=== PATIENT | male | born 1960 | race Caucasian/White ===

== ENCOUNTER 2017-11-18 07:18 | Emergency (ER) | payer BC, OTHER ==
[2017-11-18 07:43] VITALS: BP 133/90
--- NOTE | 2017-11-18 07:55 | UC ---
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 Wears dentures x 3 years, states that the fitting is good but he has lost 10 pounds since they were fitted. Pain with swallowing. Sound seems a bit muffled, ear uncomfortable. Temp 99. No meds taken. - History of Current Complaint Chief Complaint: UCEar Stated Complaint: EAR PAIN, SORE THROAT Time Seen by Provider: 11/18/17 07:42 Hx Obtained From: Patient Onset/Duration: Sudden Onset, Lasting Hours Severity: Moderate Pain Intensity: 8 Cough: Nonproductive Associated Signs & Symptoms: Positive: Negative - Epiglottits Risk Factors Epiglottis Risk Factors: Negative - Allergies/Home Medications Allergies/Adverse Reactions: Allergies Allergy/AdvReac Type Severity Reaction Status Date / Time MS Codeine [Codeine] AdvReac Nausea Verified 09/07/13 16:35 Home Medications: Home Medications ALPRAZolam TAB* [Xanax TAB*] 0.25 mg PO BEDTIME PRN 11/18/17 [History Confirmed 11/18/17] PMH/Surg Hx/FS Hx/Imm Hx - Additional Past Medical History Additional PMH: low body weight since bowel resection for diverticulitis. Respiratory History: COPD - Surgical History Surgical History: Yes Surgery Procedure, Year, and Place: Zenker's Divertulum Repair, 2002. Colon Resction, 1993. Appendectomy, 2000. 2 spontaneous pneumothorax.. 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 Is Patient Immunocompromised?: No All Other Systems Reviewed And Are Negative: Yes Physical Exam Triage Information Reviewed: Yes Appearance: Ill-Appearing, Thin Vital Signs: Initial Vital Signs Temp 99.4 F 11/18/17 07:35 Pulse 73 11/18/17 07:35 Resp 20 11/18/17 07:35 BP 133/90 11/18/17 07:35 Pulse Ox 98 11/18/17 07:35 Eye Exam: Normal ENT: Positive: Pharynx normal, TMs normal, Other - Dentures removed. Has small blister in the posterior gum line, no purulent discharge. No masses felt.. Negative: Pharyngeal erythema Dental Exam: Other Neck: Positive: Supple, Nontender, No Lymphadenopathy Respiratory: Positive: Lungs clear, Normal breath sounds Cardiovascular: Positive: RRR, No Murmur Musculoskeletal Exam: Normal Neurological Exam: Normal Psychological Exam: Normal Throat Pain/Nasal Course/Dx - Course Course Of Treatment: naproxen for pain; penicillin for possible infection. - Differential Dx/Diagnosis Provider Diagnoses: oral abscess; TMJ pain possibly secondary to dentures. Discharge - Sign-Out/Discharge Documenting (check all that apply): Discharge/Admit/Transfer - Discharge Plan Condition: Stable Disposition: HOME Prescriptions: Naproxen [Naproxen 500 mg tab] 500 mg PO BID PRN #30 tablet.dr PRN Reason: Pain Penicillin VK 500 MG TAB(NF) [Penicillin VK 500 mg Tab] 500 mg PO QID #28 tab Patient Education Materials: Dental Abscess (ED), Temporomandibular Disorder ( ED) Forms: *Work Release Referrals: John Briscoe MD [Primary Care Provider] - Additional Instructions: I suspect that you have an oral abscess, likely secondary to some wear from your dentures as judged by the blister at the back of your gum line. Use naproxen for pain, penicillin to treat infection. Follow up for assessment if you do not see improvement in 2 days. - Billing Disposition and Condition Condition: STABLE Disposition: Home
[2017-11-18] MEDS ORDERED: Naproxen TAB* 250 MG PO ONE (08:00)
== END 2017-11-18 08:20 | disposition home or self-care (01) ==
LOC: UCCORT 07:18
DX: K04.7 Periapical abscess without sinus (principal); M26.609 Unspecified temporomandibular joint disorder, unspecified side; Z98.818 Other dental procedure status; Z88.5 Allergy status to narcotic agent; F17.210 Nicotine dependence, cigarettes, uncomplicated
CPT/HCPCS: 99212; A9270-GY; G0463

== ENCOUNTER 2018-07-20 08:06 | Emergency (ER) | payer OTHER ==
--- OUTSIDE RECORDS SUMMARY | 2018-07-20 08:14 | XMS REPORT | Continuity of Care Document ---
:1960 External Reference #:[id number] Author Name Nilson Valle N.P. 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 Payers Date Identification Numbers Payment Provider Subscriber Policy Number: [id number] [facility] Abdoulaye Flemingults PayID: [id number] [employer] [address] [address] [place] [address] Effective: 2017 Policy Number: [id number] bib Abdoulaye Rebolledo Jaleel Expires: 2018 Group Number: [id number] [address] [address] PayID: [id number] [place] [address] Advance Directives Description No Information Available Problems Date Description Provider Status Onset: 07/09/2013 Chronic obstructive lung disease Kelly Becerra FNP Active Onset: 07/09/2013 Acquired diverticulum of esophagus Kelly Becerra FNP Active Onset: 07/09/2013 Tobacco user Kelly Becerra FNP Active Onset: 07/09/2013 Family history of ischemic heart Kelly Becerra FNP Active disease Onset: 09/23/2013 Myopia John Briscoe M.D. Active Onset: 09/23/2013 Diverticulitis of colon John Briscoe M.D. Active Family History Date Family Member(s) Observation Comments Father due to at age 65 () Father due to Stroke () Mother healthy Mother 74 Children 1 First Son No Current Problems First Son 26 Siblings 1 First Brother Diverticulitis First Brother 53 Social History Type Date Description Comments Sex Unknown Marital Status Legal Status: ETOH Use Occasionally consumes 3 BEERS A WEEK alcohol Recreational Drug Use Current Drug User SMOKES MARIJUANA 2-3 TIMES PER WEEK Tobacco Use Start: Unknown Patient is a current smoker, smokes every day Smoking Status Reviewed: 05/21/18 Patient is a current smoker, smokes every day Allergies, Adverse Reactions, Alerts Date Description Reaction Status Severity Comments 07/09/2013 Codeine Active pt Is Not Allergic, But Prefers Not To Take It Medications Medication Date Status Form Strength Qnty SIG Indications Ordering Provider Stiolto Active Aerosol 2.5-2.5mcg/ 4gm inhale J44.9 Luis Felipe, Respimat 018 Act two puff Ahmad M., by mouth M.D. once a day Vitamin D Active Tablets 2000Unit 30tabs Take One E55.9 Luis Felipe, 018 Tablet By Ahmad M., Mouth M.D. Every Day Nicoderm CQ Active Patches 21mg/24HR 42unit apply F17.210 Luis Felipe , 018 24HR s patch to Ahmad M., skin in M.D. new area daily after removal of old patch Alprazolam Active Tablets 0.25mg 45tabs 1 by F41.9 Luis Felipe, 017 mouth Ahmad M., three M.D. times a day as needed G47.00 Ventolin 07/09/2013 Active Aerosol 108(90Base) 54units inhale two J44.9 Luis Felipe, HFA mcg/Act puffs by Ahmad mouth every M., M.D. 4 to 6 hours as needed for cough / shortness of breath R06.02 Lexapro 04/14/2016 - Hx Tablets 10mg 90tabs 1/2-1 tab by mouth F33.9 Luis Felipe, Ahmad M., 07/05/2016 every day M.D. F41.9 Lexapro 03/30/2016 - Hx Tablets 10mg 30tabs 1 tab by mouth F33.9 Luis Felipe , Ahmad 04/14/2016 every day M., M.D. F41.9 Spiriva 08/03/2015 - Hx Aerosol 2.5mcg/Act 12units inhale one J44.9 Luis Felipe, Respimat 03/27/2018 puff by mouth Ahmad M., twice a day M.D. Chantix 07/24/2013 - Hx Tablets 1mg 60tabs take 1/2 Tab 305.1 Luis Felipe, 01/19/2014 daily x3 Ahmad M., days, then M.D. 1/2 Tab bid x4 days, then 1 tab po bid Spiriva 07/09/2013 - Hx Capsules 18mcg 90caps inhale one J44.9 Luis Felipe, Handihaler 08/03/2015 capsule via leland Cisnerosalebib [place] everyday Immunizations CPT Code Status Date Vaccine Lot # [id number] Given 03/30/2016 TDaP [id number] Refused 03/27/2018 Flu Vaccine [id number] Refused 08/03/2015 Flu Vaccine Vital Signs Date Vital Result Comment 07/10/2018 8:33am BP Systolic 110 mmHg BP Diastolic 62 mmHg Height 70 inches 5'10" Weight 110.00 lb BMI (Body Mass Index) 15.8 kg/m2 06/24/2018 8:36am BP Systolic 118 mmHg BP Diastolic 78 mmHg Height 70 inches 5'10" Weight 106.00 lb BMI (Body Mass Index) 15.2 kg/m2 Heart Rate 88 /min Respiratory Rate 16 /min 05/22/2018 8:31am BP Systolic 108 mmHg BP Diastolic 68 mmHg Height 70 inches 5'10" Weight 110.00 lb BMI (Body Mass Index) 15.8 kg/m2 Heart Rate 70 /min Respiratory Rate 16 /min 03/27/2018 8:32am BP Systolic 110 mmHg BP Diastolic 62 mmHg Height 70 inches 5'10" Weight 108.00 lb BMI (Body Mass Index) 15.5 kg/m2 Heart Rate 76 /min Respiratory Rate 16 /min 02/20/2018 8:35am BP Systolic 110 mmHg BP Diastolic 70 mmHg Height 70 inches 5'10" Weight 109.00 lb BMI (Body Mass Index) 15.6 kg/m2 Heart Rate 88 /min Respiratory Rate 16 /min 02/06/2018 9:00am BP Systolic 118 mmHg BP Diastolic 70 mmHg Height 70 inches 5'10" Weight 107.00 lb BMI (Body Mass Index) 15.4 kg/m2 Heart Rate 64 /min Respiratory Rate 16 /min 01/23/2018 8:34am BP Systolic 110 mmHg BP Diastolic 72 mmHg Height 70 inches 5'10" Weight 109.00 lb BMI (Body Mass Index) 15.6 kg/m2 Heart Rate 63 /min Respiratory Rate 14 /min 11/26/2017 8:04am BP Systolic 120 mmHg BP Diastolic 62 mmHg Height 70 inches 5'10" Weight 110.00 lb BMI (Body Mass Index) 15.8 kg/m2 Heart Rate 92 /min Respiratory Rate 16 /min 09/26/2017 8:07am BP Systolic 110 mmHg BP Diastolic 70 mmHg Height 70 inches 5'10" Weight 111.00 lb BMI (Body Mass Index) 15.9 kg/m2 Heart Rate 63 /min Respiratory Rate 18 /min 08/01/2017 8:40am BP Systolic 118 mmHg BP Diastolic 70 mmHg Height 70 inches 5'10" Weight 110.00 lb BMI (Body Mass Index) 15.8 kg/m2 Heart Rate 68 /min Respiratory Rate 20 /min 05/29/2017 8:32am BP Systolic 110 mmHg BP Diastolic 72 mmHg Height 70 inches 5'10" Weight 110.00 lb BMI (Body Mass Index) 15.8 kg/m2 Heart Rate 73 /min Respiratory Rate 18 /min 04/02/2017 9:39am BP Systolic 120 mmHg BP Diastolic 70 mmHg Weight 112.00 lb Heart Rate 78 /min Respiratory Rate 16 /min 01/31/2017 9:46am BP Systolic 100 mmHg BP Diastolic 70 mmHg Height 70 inches 5'10" Weight 113.00 lb BMI (Body Mass Index) 16.2 kg/m2 Heart Rate 80 /min Respiratory Rate 16 /min 12/13/2016 8:31am BP Systolic 110 mmHg BP Diastolic 60 mmHg Height 70 inches 5'10" Weight 113.00 lb BMI (Body Mass Index) 16.2 kg/m2 Heart Rate 75 /min Respiratory Rate 16 /min 11/29/2016 10:32am BP Systolic 108 mmHg BP Diastolic 64 mmHg Height 70 inches 5'10" Weight 114.00 lb BMI (Body Mass Index) 16.4 kg/m2 Heart Rate 58 /min Respiratory Rate 16 /min 10/02/2016 8:36am BP Systolic 110 mmHg BP Diastolic 58 mmHg Height 70 inches 5'10" Weight 111.00 lb BMI (Body Mass Index) 15.9 kg/m2 Heart Rate 89 /min Respiratory Rate 16 /min 07/25/2016 2:06pm BP Systolic 110 mmHg BP Diastolic 72 mmHg Height 70 inches 5'10" Weight 113.00 lb BMI (Body Mass Index) 16.2 kg/m2 Heart Rate 82 /min Respiratory Rate 16 /min 04/14/2016 8:45am BP Systolic 112 mmHg BP Diastolic 72 mmHg Weight 118.00 lb Heart Rate 72 /min Respiratory Rate 20 /min 03/30/2016 9:24am BP Systolic 126 mmHg BP Diastolic 64 mmHg Height 71 inches 5'11" Weight 117.00 lb BMI (Body Mass Index) 16.3 kg/m2 Heart Rate 82 /min Respiratory Rate 20 /min 03/15/2016 8:27am BP Systolic 132 mmHg BP Diastolic 78 mmHg Height 71 inches 5'11" Weight 120.00 lb BMI (Body Mass Index) 16.7 kg/m2 Heart Rate 57 /min Respiratory Rate 20 /min 08/10/2015 10:42am BP Systolic 105 mmHg BP Diastolic 76 mmHg Height 71 inches 5'11" Weight 117.00 lb BMI (Body Mass Index) 16.3 kg/m2 Heart Rate 81 /min Respiratory Rate 18 /min 08/03/2015 10:11am BP Systolic 130 mmHg BP Diastolic 84 mmHg Height 71 inches 5'11" Weight 118.00 lb BMI (Body Mass Index) 16.5 kg/m2 Heart Rate 84 /min Respiratory Rate 18 /min 02/02/2015 9:42am BP Systolic 116 mmHg BP Diastolic 77 mmHg Height 71 inches 5'11" Weight 120.00 lb BMI (Body Mass Index) 16.7 kg/m2 Heart Rate 66 /min Respiratory Rate 16 /min 07/23/2014 2:49pm BP Systolic 116 mmHg BP Diastolic 78 mmHg Height 71 inches 5'11" Weight 119.00 lb BMI (Body Mass Index) 16.6 kg/m2 Heart Rate 74 /min Respiratory Rate 15 /min 06/11/2014 10:22am BP Systolic 125 mmHg BP Diastolic 70 mmHg Height 71 inches 5'11" Weight 120.00 lb BMI (Body Mass Index) 16.7 kg/m2 Heart Rate 85 /min Respiratory Rate 14 /min 01/26/2014 11:46am BP Systolic 124 mmHg BP Diastolic 85 mmHg Height 71 inches 5'11" Weight 116.00 lb BMI (Body Mass Index) 16.2 kg/m2 Heart Rate 50 /min Respiratory Rate 18 /min 09/23/2013 9:29am BP Systolic 118 mmHg BP Diastolic 84 mmHg Height 71 inches 5'11" Weight 127.00 lb BMI (Body Mass Index) 17.7 kg/m2 Heart Rate 57 /min Respiratory Rate 18 /min 07/24/2013 9:22am BP Systolic 102 mmHg BP Diastolic 73 mmHg Height 71 inches 5'11" Weight 119.00 lb BMI (Body Mass Index) 16.6 kg/m2 Heart Rate 92 /min Respiratory Rate 18 /min 07/16/2013 9:51am BP Systolic 130 mmHg BP Diastolic 87 mmHg Height 71 inches 5'11" Weight 119.00 lb BMI (Body Mass Index) 16.6 kg/m2 Heart Rate 74 /min Respiratory Rate 18 /min 07/09/2013 9:42am BP Systolic 136 mmHg BP Diastolic 90 mmHg Height 71 inches 5'11" Weight 118.00 lb BMI (Body Mass Index) 16.5 kg/m2 Heart Rate 84 /min Body Temperature 97.0 F Respiratory Rate 22 /min Results Test Date Facility Test Result H/L Range Note Laboratory test 06/24/2018 [facility] Free Thyroxine 1.16 ng/dL (0.76- 1.46 finding [facility] @ ) (607)- - Ferritin @ 134 ng/mL (26-388) Hemoglobin A1c 06/24/2018 [facility] Hemoglobin A1c @ 5.7 % (4.0-6.0) 1 [address] [facility] (607)- - Est Average Glucose 117 mg/dL Laboratory 06/24/2018 [facility] TSH,Ultrasensitive @ 0.647 (0.360- 4.170) test finding [address] [facility] mIU/L (607)- - Lipid Extended 06/24/2018 [facility] Appearance CLEAR (Clear) Panel [address] [facility] (608)- - Cholesterol @ 235 mg/dL High (0-200) Triglyceride @ 56 mg/dL (30-200) HDL Cholesterol @ 90 mg/dL (>40) 2 Chol/HDL Ratio 2.6 RATIO 3 Direct LDL @ 107 mg/dL (<130) 4 VLDL (Calc) 38 mg/dL High (0-30) Laboratory test 06/24/2018 [facility] 25 Hydroxy Vit 50 ng/mL (31-100 ) 5 finding [address] [facility] [address] @ (607)- - Vitamin B12 @ 856 pg/mL (193-986) Folate @ >20.0 ng/mL High (3.1-17.5) Iron Panel 06/24/2018 [facility] Iron,Total @ 39 g/dL (35-150) [address] [facility] (607)- - Uibc @ 193 g/dL (130-375) Tibc @ 232 g/dL Low (250-450) % Saturation 17 % (12-50) Laboratory test 06/24/2018 [facility] Rheumatoid Factor <15 IU/mL (0- 15) finding [address] [facility] @ (607)- - C Reactive Protein @ <0.3 mg/dL (0.0-0.5) Esr 8 mm/h (0-20) CBC With Diff 06/24/2018 [facility] WBC 6.9 10*3/uL (4.1-11.0) [address] [facility] (607)- - RBC 4.36 10*6/uL Low (4.60-6.10) HGB 14.6 g/dL (13.5-18.0) HCT 43.2 % (41.0-53.0) MCV 99.1 fL High (80.0-95.0) MCH 33.4 pg High (27.0-32.0) MCHC 33.8 g/dL (32.0-36.0) RDW 13.9 % (10.5-14.5) PLT 279 10*3/uL (150-450) MPV 8.3 fL (7.1-10.7) Neut % 70.0 % (35.0-75.0) Lymph % 21.9 % (16.0-52.0) Lajas % 6.5 % (0.0-8.0) Eos % 0.6 % (0.0-5.0) Baso % 1.0 % (0.0-4.0) Neut # 4.8 10*3/uL (1.8-7.7) Lymph # 1.5 10*3/uL (1.2-4.8) Lajas # 0.5 10*3/uL (0.0-0.8) Eos # 0.0 10*3/uL (0.0-0.5) Baso # 0.1 10*3/uL (0.0-0.2) CMP 06/24/2018 [facility] Sodium 138 mmol/L (136-145) [address] [facility] [facility] (607)- - Potassium 4.6 mmol/L (3.6-5.2) Chloride 101 mmol/L (100-108) Co2 30 mmol/L (22-31) Anion Gap 7 mmol/L (7-16) Urea Nitrogen 20 mg/dL (7-24) Creatinine 1.07 mg/dL (0.80-1.30) BUN/Creat Ratio 18.7 RATIO (10.0-20.0) Glucose 89 mg/dL (70-99) Calcium 9.4 mg/dL (8.4-10.2) Total Protein 7.1 g/dL (6.4-8.2) Albumin 4.2 g/dL (3.5-4.6) Globulin 2.9 g/dL (2.7-4.3) Alb/Glob Ratio 1.4 RATIO Alkaline Phosphatase 68 U/L (45-117) Bilirubin,Total 0.5 mg/dL (0.0-1.0) Ast (Sgot) 23 U/L (11-39) Alt (SGPT) 28 U/L (12-78) GFR >60 ml/min/1.73m2 (>59) GFR ( Amer) >60 ml/min/1.73m2 (>59) GFR Interpretation <SEE NOTE> 6 CBS W/Automated Diff 03/26/2018 [facility] White Blood Count 7.2 K/uL N 3.4 -10.5 7 Red Blood Count 4.42 M/uL N 4.20-5.80 Hemoglobin 14.7 gm/dL N 12.8-17.0 Hematocrit 44.3 % N 38.0-48.0 Mean Cell Volume 100.2 fl High 80.0-96.0 Mean Corpuscular HGB 33.3 pg High 27.0-33.0 Mean Corpuscular HGB Conc 33.2 g/dL N 31.7-36.0 Platelet Count 258 K/uL N 155-360 Red Cell Distri Width SD 51.3 fl High 36-51 Red Cell Distri Width %CV 14.2 % N 11.6-15.8 Mean Platelet Volume 9.9 fL N 6.6-10.6 Neut% 68.4 % N 33.0-73.0 Lymph % 23.2 % N 20.0-42.0 Lajas % 6.5 % N 0.0-10.0 Eo% 1.8 % N 0.0-6.6 Bas% 0.1 % N 0.0-1.1 Neut# 4.91 K/uL N 1.8-7.0 Lymph # 1.67 K/uL N 1.0-4.0 Lajas # 0.47 K/uL N 0.0-0.8 Eos # 0.13 K/uL N 0.0-0.5 Baso # 0.01 K/uL N 0.0-0.1 Iron-Tibc-%Sat 03/26/2018 [facility] Serum Iron 56 g/dL Low 65-175 Total Iron Binding Capacity 238 g/dL Low 250-450 Transferrin %Saturation 24 % N 12-57 Urine DRG SCR 02/07/2018 [facility] Amphetamine NEGATIVE N 1000 8 (12PNL-PM) Barbiturate NEGATIVE N 200 Benzodiazepine POSITIVE Abnormal 200 Buprenorphine NEGATIVE N 15 Cannabinoid POSITIVE Abnormal 50 Cocaine NEGATIVE N 300 Methadone NEGATIVE N 300 Opiate NEGATIVE N 300 Oxycodone NEGATIVE N 300 Phencyclidine NEGATIVE N 25 9 Antidepressants Panel 02/07/2018 [facility] Amitriptyline Negative ng/mL N 20 By LC/MS/MS Clomipramine Negative ng/mL N 20 Desipramine Negative ng/mL N 20 Doxepin Negative ng/mL N 20 Fluoxetine Negative ng/mL N 20 Imipramine Negative ng/mL N 20 Norclomipramine Negative ng/mL N 20 Nordoxepin Negative ng/mL N 20 Nortriptyline Negative ng/mL N 20 Sertraline Negative ng/mL N 20 Trimipramine Negative ng/mL N 20 10 Barbiturates Panel By 02/07/2018 [facility] Butalbital Negative ng/mL N 100 LC/MS/MS Pentobarbital Negative ng/mL N 100 Phenobarbital Negative ng/mL N 100 Secobarbital Negative ng/mL N 100 11 Benzodiazepines 02/07/2018 [facility] 2-Hydroxyethylflurazepam Negative N 10 Panel By LC/MS/MS ng/mL 7-Aminoclonazepam Negative ng/mL N 10 Alprazolam 27 Positive Cons <SEE NOTE> ng/mL N 10 12 Chlordiazepoxide Negative ng/mL N 10 Clonazepam Negative ng/mL N 10 Desalkylflurazepam Negative ng/mL N 10 Diazepam Negative ng/mL N 10 Lorazepam Negative ng/mL N 10 Midazolam Negative ng/ml N 10 Nordiazepam Negative ng/mL N 10 Alpha-hydroxyalprazolam 187 Positive Con <SEE NOTE> ng/mL N 10 13 Alpha-Hydroxymidazolam Negative ng/mL N 10 Alpha-Hydroxytriazolam Negative ng/mL N 10 Oxazepam Negative ng/mL N 10 Prazepam Negative ng/mL N 10 Temazepam Negative ng/mL N 10 14 Buprenorphine Panel By 02/07/2018 [facility] Buprenorphine Negative ng/mL N 5 LC/MS/MS Naloxone Negative ng/mL N 10 Norbuprenorphine Negative ng/mL N 5 15 Methadone Panel By 02/07/2018 [facility] Eddp Negative ng/mL N 10 LC/MS/MS Methadone Negative ng/mL N 10 16 Urine Drug [facility] 02/07/2018 [facility] [id number]-Cooh < pending> Ethyl Glucuronide <pending> Ethyl Glucuronide 02/07/2018 [facility] Ethyl Glucuronide Negative ng/mL N 500 PDF SEE IMAGE Laboratory test 02/07/2018 [facility] Cocaine Panel By Negative ng/mL N 50 17 finding LC/MS/MS Tramadol Negative ng/mL N 5 18 PTO-Euctd-0-Cooh Positive >500 In <SEE NOTE> ng/mL Abnormal 5 19 Gabapentin Negative ng/mL N 100 20 Cotinine Positive Consist <SEE NOTE> ng/mL N 500 21 Opiates Panel By 02/07/2018 [facility] 6-Deepthi (Heroin Negative ng/ mL N 5 LC/MS/MS Metabolite) Codeine Negative ng/mL N 50 Hydrocodone Negative ng/mL N 50 Hydromorphone Negative ng/mL N 50 Morphine Negative ng/mL N 50 Norhydrocodone Negative ng/mL N 50 Noroxycodone Negative ng/mL N 50 Noroxymorphone Negative ng/mL N 50 Oxycodone Negative ng/mL N 50 Oxymorphone Negative ng/mL N 50 22 Amphetamine Panel By 02/07/2018 [facility] Amphetamine Negative ng/mL N 50 LC/MS/MS Methamphetamine Negative ng/mL N 50 Mdma (Ecstasy) Negative ng/mL N 50 Mda Negative ng/ml N 50 Mdea Negative ng/mL N 50 23 Specimen Validity 02/07/2018 [facility] Creatinine, Urine 162 mg/ dL N >20 Panel Color YELLOW N Yellow pH 5.2 N 5.0-8.0 Specific [place] 1.026 N 1.001-1.035 24 CMP 02/06/2018 [facility] Sodium 139 mmol/L (136-145) [address] [facility] [facility] (607)- - Potassium 4.6 mmol/L (3.6-5.2) Chloride 102 mmol/L (100-108) Co2 29 mmol/L (22-31) Anion Gap 8 mmol/L (7-16) Urea Nitrogen 15 mg/dL (7-24) Creatinine 0.91 mg/dL (0.80-1.30) BUN/Creat Ratio 16.5 RATIO (10.0-20.0) Glucose 75 mg/dL (70-99) Calcium 9.3 mg/dL (8.4-10.2) Total Protein 7.3 g/dL (6.4-8.2) Albumin 4.0 g/dL (3.5-4.6) Globulin 3.3 g/dL (2.7-4.3) Alb/Glob Ratio 1.2 RATIO Alkaline Phosphatase 59 U/L (45-117) Bilirubin,Total 0.5 mg/dL (0.0-1.0) Ast (Sgot) 16 U/L (11-39) Alt (SGPT) 25 U/L (12-78) GFR >60 ml/min/1.73m2 (>59) GFR ( Amer) >60 ml/min/1.73m2 (>59) GFR Interpretation <SEE NOTE> 25 Laboratory test finding 02/06/2018 [facility] Amylase 72 U/L (25-115) [address] [facility] (607)- - Lipase 141 U/L (65-230) Vitamin B12 @ 968 pg/mL (193-986) Folate @ 19.7 ng/mL High (3.1-17.5) TSH,Ultrasensitive @ 0.911 mIU/L (0.360-4.170) 25 Hydroxy Vit D @ 18 ng/mL Low (31-100) 26 Lipid 02/06/2018 [facility] Cholesterol @ 222 mg/dL High (0-200) [address] [facility] (607)- - Triglyceride @ 59 mg/dL (30-200) HDL Cholesterol @ 94 mg/dL (>40) 27 Chol/HDL Ratio 2.4 RATIO 28 LDL Chol (Calc) 116 mg/dL (<130) 29 CBC With Diff 02/06/2018 [facility] WBC 9.4 10*3/uL (4.1-11.0) [address] [facility] (607)- - RBC 4.84 10*6/uL (4.60-6.10) HGB 15.9 g/dL (13.5-18.0) HCT 49.7 % (41.0-53.0) MCV 102.7 fL High (80.0-95.0) MCH 32.8 pg High (27.0-32.0) MCHC 31.9 g/dL Low (32.0-36.0) RDW 15.4 % High (10.5-14.5) PLT COUNT NOT AVAILA <SEE NOTE> 10*3/uL (150-450) 30 MPV PENDING fL (7.1-10.7) Neut % 77.8 % High (35.0-75.0) Lymph % 12.8 % Low (16.0-52.0) Lajas % 6.9 % (0.0-8.0) Eos % 1.1 % (0.0-5.0) Baso % 1.4 % (0.0-4.0) Neut # 7.3 10*3/uL (1.8-7.7) Lymph # 1.2 10*3/uL (1.2-4.8) Lajas # 0.6 10*3/uL (0.0-0.8) Eos # 0.1 10*3/uL (0.0-0.5) Baso # 0.1 10*3/uL (0.0-0.2) Buprenorphine Panel By 01/23/2018 [facility] Buprenorphine Negative ng/mL N 5 31 LC/MS/MS Naloxone Negative ng/mL N 10 Norbuprenorphine Negative ng/mL N 5 32 Urine DRG SCR 01/23/2018 [facility] Amphetamine NEGATIVE N 1000 (12PNL-PM) Barbiturate NEGATIVE N 200 Benzodiazepine NEGATIVE N 200 Buprenorphine NEGATIVE N 15 Cannabinoid POSITIVE Abnormal 50 Cocaine NEGATIVE N 300 Methadone NEGATIVE N 300 Opiate NEGATIVE N 300 Oxycodone NEGATIVE N 300 Phencyclidine NEGATIVE N 25 33 Opiates Panel By 01/23/2018 [facility] 6-Deepthi (Heroin Negative ng/ mL N 5 LC/MS/MS Metabolite) Codeine Negative ng/mL N 50 Hydrocodone Negative ng/mL N 50 Hydromorphone Negative ng/mL N 50 Morphine Negative ng/mL N 50 Norhydrocodone Negative ng/mL N 50 Noroxycodone Negative ng/mL N 50 Noroxymorphone Negative ng/mL N 50 Oxycodone Negative ng/mL N 50 Oxymorphone Negative ng/mL N 50 34 Urine Drug [facility] 01/23/2018 [facility] [id number]-Sxpsd-0-Cooh < pending> Ethyl Glucuronide <pending> Benzodiazepines 01/23/2018 [facility] 2-Hydroxyethylflurazepam Negative N 10 Panel By LC/MS/MS ng/mL 7-Aminoclonazepam Negative ng/mL N 10 Alprazolam Negative In[facility] <SEE NOTE> ng/mL Abnormal 10 35 Chlordiazepoxide Negative ng/mL N 10 Clonazepam Negative ng/mL N 10 Desalkylflurazepam Negative ng/mL N 10 Diazepam Negative ng/mL N 10 Lorazepam Negative ng/mL N 10 Midazolam Negative ng/ml N 10 Nordiazepam Negative ng/mL N 10 Alpha-hydroxyalprazolam Negative [facility] <SEE NOTE> ng/mL Abnormal 10 36 Alpha-Hydroxymidazolam Negative ng/mL N 10 Alpha-Hydroxytriazolam Negative ng/mL N 10 Oxazepam Negative ng/mL N 10 Prazepam Negative ng/mL N 10 Temazepam Negative ng/mL N 10 37 Methadone Panel By 01/23/2018 [facility] Eddp Negative ng/mL N 10 LC/MS/MS Methadone Negative ng/mL N 10 38 Specimen Validity 01/23/2018 [facility] Creatinine, Urine 145 mg/ dL N >20 Panel Color YELLOW N Yellow pH 5.4 N 5.0-8.0 Specific [place] 1.025 N 1.001-1.035 39 Antidepressants Panel 01/23/2018 [facility] Amitriptyline Negative ng/mL N 20 By LC/MS/MS Clomipramine Negative ng/mL N 20 Desipramine Negative ng/mL N 20 Doxepin Negative ng/mL N 20 Fluoxetine Negative ng/mL N 20 Imipramine Negative ng/mL N 20 Norclomipramine Negative ng/mL N 20 Nordoxepin Negative ng/mL N 20 Nortriptyline Negative ng/mL N 20 Sertraline Negative ng/mL N 20 Trimipramine Negative ng/mL N 20 40 Amphetamine Panel By 01/23/2018 [facility] Amphetamine Negative ng/mL N 50 LC/MS/MS Methamphetamine Negative ng/mL N 50 Mdma (Ecstasy) Negative ng/mL N 50 Mda Negative ng/ml N 50 Mdea Negative ng/mL N 50 41 Laboratory test 01/23/2018 [facility] Cocaine Panel By Negative ng/mL N 50 42 finding LC/MS/MS Tramadol Negative ng/mL N 5 43 CDA-Xvbml-0-Cooh Positive >500 In <SEE NOTE> ng/mL Abnormal 5 44 Gabapentin Negative ng/mL N 100 45 Barbiturates Panel By 01/23/2018 [facility] Butalbital Negative ng/mL N 100 LC/MS/MS Pentobarbital Negative ng/mL N 100 Phenobarbital Negative ng/mL N 100 Secobarbital Negative ng/mL N 100 46 Ethyl Glucuronide 01/23/2018 [facility] Ethyl Glucuronide Negative ng/mL N 500 PDF SEE IMAGE Lipid Profile (Trig/Chol/HDL) 11/29/2016 [facility] Triglycerides 69 mg /dL N 47 Cholesterol 248 mg/dL N 48 HDL Cholesterol 86.2 mg/dL N 49 LDL Cholesterol 148 mg/dL N 50 Laboratory test 11/29/2016 [facility] Hemoglobin A1c 5.8 % N Less than 51 finding (Glyco HGB) 6.0 Comp Metabolic 11/29/2016 [facility] Sodium 135 mmol/L N 133-145 Panel Potassium 4.6 mmol/L N 3.5-5.0 Chloride 101 mmol/L N 101-111 Co2 Carbon Dioxide 30 mmol/L N 22-32 Anion Gap 4 mmol/L N 2-11 Glucose 85 mg/dL N 70-100 Blood Urea Nitrogen 14 mg/dL N 6-24 Creatinine 0.91 mg/dL N 0.67-1.17 BUN/Creatinine Ratio 15.4 N 8-20 Calcium 9.5 mg/dL N 8.6-10.3 Total Protein 6.7 g/dL N 6.4-8.9 Albumin 4.0 g/dL N 3.2-5.2 Globulin 2.7 g/dL N 2-4 Albumin/Globulin Ratio 1.5 N 1-3 Total Bilirubin 0.50 mg/dL N 0.2-1.0 Alkaline Phosphatase 47 U/L N 34-104 Alt 16 U/L N 7-52 Ast 15 U/L N 13-39 Egfr Non- 86.5 N >60 Egfr 111.2 N >60 52 CBC Auto Diff 11/29/2016 [facility] White Blood Count 6.0 10^3/uL N 3.5-10.8 Red Blood Count 4.56 10^6/uL N 4.0-5.4 Hemoglobin 15.2 g/dL N 14.0-18.0 Hematocrit 46 % N 42-52 Mean Corpuscular Volume 101 fL High 80-94 Mean Corpuscular Hemoglobin 33 pg High 27-31 Mean Corpuscular HGB Conc 33 g/dL N 31-36 Red Cell Distribution Width 15 % N 10.5-15 Platelet Count 273 10^3/uL N 150-450 Mean Platelet Volume 9 um3 N 7.4-10.4 Abs Neutrophils 3.2 10^3/uL N 1.5-7.7 Abs Lymphocytes 1.9 10^3/uL N 1.0-4.8 Abs Monocytes 0.6 10^3/uL N 0-0.8 Abs Eosinophils 0.1 10^3/uL N 0-0.6 Abs Basophils 0.1 10^3/uL N 0-0.2 Abs Nucleated RBC 0.02 10^3/uL N Granulocyte % 53.9 % N 38-83 Lymphocyte % 32.3 % N 25-47 Monocyte % 10.0 % High 1-9 Eosinophil % 1.9 % N 0-6 Basophil % 1.9 % N 0-2 Nucleated Red Blood Cells % 0.3 N Laboratory test 11/29/2016 [facility] TSH (Thyroid 0.93 mcIU/mL N 0.34-5.60 53 finding Stim Horm) CBC Auto Diff 03/30/2016 [facility] White Blood 6.4 10^3/uL N 3.5- 10.8 Count Red Blood Count 4.79 10^6/uL N 4.0-5.4 Hemoglobin 15.6 g/dL N 14.0-18.0 Hematocrit 47 % N 42-52 Mean Corpuscular Volume 98 fL High 80-94 Mean Corpuscular Hemoglobin 33 pg High 27-31 Mean Corpuscular HGB Conc 33 g/dL N 31-36 Red Cell Distribution Width 14 % N 10.5-15 Platelet Count 274 10^3/uL N 150-450 Mean Platelet Volume 8 um3 N 7.4-10.4 Abs Neutrophils 4.3 10^3/uL N 1.5-7.7 Abs Lymphocytes 1.5 10^3/uL N 1.0-4.8 Abs Monocytes 0.5 10^3/uL N 0-0.8 Abs Eosinophils 0.1 10^3/uL N 0-0.6 Abs Basophils 0.1 10^3/uL N 0-0.2 Abs Nucleated RBC 0 10^3/uL N Granulocyte % 66.8 % N 38-83 Lymphocyte % 23.6 % Low 25-47 Monocyte % 7.2 % N 1-9 Eosinophil % 1.2 % N 0-6 Basophil % 1.2 % N 0-2 Nucleated Red Blood Cells % 0.1 N Comp Metabolic Panel 03/30/2016 [facility] Sodium 136 mmol/L N 133- 145 Potassium 4.4 mmol/L N 3.5-5.0 Chloride 103 mmol/L N 101-111 Co2 Carbon Dioxide 28 mmol/L N 22-32 Anion Gap 5 mmol/L N 2-11 Glucose 93 mg/dL N 70-100 Blood Urea Nitrogen 17 mg/dL N 6-24 Creatinine 0.98 mg/dL N 0.67-1.17 BUN/Creatinine Ratio 17.3 N 8-20 Calcium 9.6 mg/dL N 8.6-10.3 Total Protein 6.8 g/dL N 6.4-8.9 Albumin 4.1 g/dL N 3.2-5.2 Globulin 2.7 g/dL N 2-4 Albumin/Globulin Ratio 1.5 N 1-3 Total Bilirubin 0.50 mg/dL N 0.2-1.0 Alkaline Phosphatase 52 U/L N 34-104 Alt 15 U/L N 7-52 Ast 14 U/L N 13-39 Egfr Non- 79.7 N >60 Egfr 102.5 N >60 54 Lipid Profile (Trig/Chol/HDL) 03/30/2016 [facility] Triglycerides 72 mg /dL N 55 Cholesterol 218 mg/dL N 56 HDL Cholesterol 74.7 mg/dL N 57 LDL Cholesterol 129 mg/dL N 58 Laboratory test 03/30/2016 [facility] TSH (Thyroid 0.67 mcIU/mL N 0.34-5.60 59 finding Stim Horm) Laboratory test 08/03/2015 [facility] TSH (Thyroid 0.76 ?IU/mL N 0.34 -5.60 finding Stim Horm) Free T4 (Free Thyroxine) 0.99 ng/dL N 0.61-1.12 Laboratory test 08/03/2015 [facility] Thyroid Peroxidase 0.79 IU/mL N <9 finding Antibodies Lipid Profile 08/03/2015 [facility] Triglycerides 101 mg/dL N 60 (Trig/Chol/HDL) Cholesterol 201 mg/dL N 61 HDL Cholesterol 68.5 mg/dL N 62 LDL Cholesterol 112 mg/dL N 63 Laboratory test 08/03/2015 [facility] Erythrocyte Sed 22 mm/Hr High 0 -20 finding Rate Lipase 28 U/L N 11.0-82.0 Amylase 56 U/L N 29-103 Comp Metabolic Panel 08/03/2015 [facility] Sodium 139 mmol/L N 133- 145 Potassium 4.2 mmol/L N 3.5-5.0 Chloride 104 mmol/L N 101-111 Co2 Carbon Dioxide 30 mmol/L N 22-32 Anion Gap 5 mmol/L N 2-11 Glucose 95 mg/dL N 70-100 Blood Urea Nitrogen 19 mg/dL N 6-24 Creatinine 0.95 mg/dL N 0.67-1.17 BUN/Creatinine Ratio 20.0 N 8-20 Calcium 9.6 mg/dL N 8.6-10.3 Total Protein 7.1 g/dL N 6.4-8.9 Albumin 4.3 g/dL N 3.2-5.2 Globulin 2.8 g/dL N 2-4 Albumin/Globulin Ratio 1.5 N 1-3 Total Bilirubin 0.50 mg/dL N 0.2-1.0 Alkaline Phosphatase 60 U/L N 34-104 Alt 16 U/L N 7-52 Ast 15 U/L N 13-39 Egfr Non- 82.6 N >60 Egfr 106.2 N >60 64 CBC Auto Diff 08/03/2015 [facility] White Blood Count 6.2 10^3/uL N 3.5-10.8 Red Blood Count 4.84 10^6/uL N 4.0-5.4 Hemoglobin 15.7 g/dL N 14.0-18.0 Hematocrit 48 % N 42-52 Mean Corpuscular Volume 99 fL High 80-94 Mean Corpuscular Hemoglobin 32 pg High 27-31 Mean Corpuscular HGB Conc 33 g/dL N 31-36 Red Cell Distribution Width 14 % N 10.5-15 Platelet Count 285 10^3/uL N 150-450 Mean Platelet Volume 9 um3 N 7.4-10.4 Abs Neutrophils 4.4 10^3/uL N 1.5-7.7 Abs Lymphocytes 1.3 10^3/uL N 1.0-4.8 Abs Monocytes 0.4 10^3/uL N 0-0.8 Abs Eosinophils 0 10^3/uL N 0-0.6 Abs Basophils 0.1 10^3/uL N 0-0.2 Abs Nucleated RBC 0 10^3/uL N Granulocyte % 70.4 % N 38-83 Lymphocyte % 20.9 % Low 25-47 Monocyte % 7.1 % N 1-9 Eosinophil % 0.5 % N 0-6 Basophil % 1.1 % N 0-2 Nucleated Red Blood Cells % 0 N CBC W/Automated Diff 07/23/2014 [facility] White Blood Count 7.1 K/uL 3.4- 10.5 Red Blood Count 4.40 M/uL 4.20-5.80 Hemoglobin 14.7 gm/dL 12.8-17.0 Hematocrit 43.3 % 38.0-48.0 Mean Cell Volume 98.4 fl High 80.0-96.0 Mean Corpuscular HGB 33.4 pg High 27.0-33.0 Mean Corpuscular HGB Conc 33.9 g/dL 31.7-36.0 Platelet Count 284 K/uL 150-400 Red Cell Distri Width SD 49.3 fl 36-51 Red Cell Distri Width %CV 13.9 % 11.6-15.8 Mean Platelet Volume 10.9 fL High 6.6-10.6 Neut% 59.6 % 33.0-73.0 Lymph % 29.5 % 17.0-56.0 [place] % 9.3 % 0.0-10.0 Eo% 1.3 % 0.0-5.0 Bas% 0.3 % 0.1-1.0 Neut# 4.24 K/uL 1.8-7.0 Lymph # 2.10 K/uL 1.2-4.0 [place] # 0.66 K/uL 0.0-0.8 Eos # 0.09 K/uL 0.0-0.5 Baso # 0.02 K/uL Low 0.1-0.2 Comprehensive Metabolic Panel 07/23/2014 [facility] Glucose 84 mg/dL 74- 106 BUN 19 mg/dL High 7-18 Creatinine 1.0 mg/dL 0.6-1.3 Glom Filtration Rate, Estimate >60 mL/min >60 If >60 mL/min >60 65 BUN/Creat 19.0 ratio Sodium 139 mmol/L 136-145 Potassium 4.2 mmol/L 3.5-5.1 Chloride 106 mmol/L 98-107 Carbon Dioxide 24 mmol/L 21-32 Anion Gap 9 mEq/L 8-16 Calcium 8.6 mg/dL 8.5-10.1 Total Protein 6.6 g/dL 6.4-8.2 Albumin 3.8 g/dL 3.4-5.0 Globulin 2.8 g/dL 1.9-4.3 Alb/Glob 1.4 ratio Bilirubin,Total 0.2 mg/dL 0.2-1.0 Sgot/Ast 15 U/L 15-37 SGPT/Alt 23 U/L 12-78 Alkaline Phosphatase 59 U/L 45-117 Glycohemoglobin A1c 07/23/2014 [facility] Glycohemoglobin (A1c) 5.7 % 4.2- 6.3 66 eAG 117 mg/dL Vitamin B12 And Folate 07/23/2014 [facility] Vitamin B12 682 pg/mL 193- 986 67 Folic Acid 13.3 ng/mL 3.1-17.5 Iron-Tibc-%Sat 07/23/2014 [facility] Serum Iron 68 g/dL 65-175 Total Iron Binding Capacity 287 g/dL 250-450 Transferrin %Saturation 24 % 12-57 Laboratory test 07/23/2014 [facility] C-Reactive 0.58 mg/L <3.0 finding Protein,Cardiac Sedimentation Rate 5 mm/hr 0-20 Thyroid Stim Hormone 0.75 uIU/mL 0.36-3.74 LDL Cholesterol Profile 07/23/2014 [facility] Cholesterol 200 mg/dL < 200 68 Triglycerides 110 mg/dL < 150 69 HDL Cholesterol 71 mg/dL > 40 70 LDL-Cholesterol 107 mg/dL < 100 71 Laboratory test 07/23/2014 [facility] Prostate Specific 1.12 ng/mL 72 finding Antigen Basic Metabolic Panel 09/08/2013 [facility] Glucose 93 mg/dL 76-115 BUN 11 mg/dL 5-23 Creatinine 1.0 mg/dL 0.5-1.4 Glom Filtration Rate, Estimate >60 mL/min >60 If >60 mL/min >60 73 BUN/Creat 11.0 ratio Sodium 138 mmol/L 136-145 Potassium 3.9 mmol/L 3.5-5.1 Chloride 104 mmol/L 98-107 Carbon Dioxide 30 mEq/L High 18-29 Anion Gap 8 mEq/L 8-16 Calcium 8.6 mg/dL 8.5-10.1 CBS W/Automated Diff 09/08/2013 [facility] White Blood Count 11.8 K/uL High 3.4-10.5 Red Blood Count 4.08 M/uL Low 4.20-5.80 Hemoglobin 13.8 gm/dL 12.8-17.0 Hematocrit 39.6 % 38.0-48.0 Mean Cell Volume 97.1 fl High 80.0-96.0 Mean Corpuscular HGB 33.8 pg High 27.0-33.0 Mean Corpuscular HGB Conc 34.8 g/dL 31.7-36.0 Platelet Count 263 K/uL 150-400 Red Cell Distri Width SD 48.1 fl 36-51 Red Cell Distri Width %CV 13.8 % 11.6-15.8 Mean Platelet Volume 10.2 fL 6.6-10.6 Neut% 73.6 % High 33.0-73.0 Lymph % 14.0 % Low 17.0-56.0 [place] % 11.9 % High 0.0-10.0 Eo% 0.3 % 0.0-5.0 Bas% 0.2 % 0.1-1.0 Neut# 8.66 K/uL High 1.8-7.0 Lymph # 1.65 K/uL 1.2-4.0 [place] # 1.40 K/uL High 0.0-0.6 Eos # 0.04 K/uL 0.0-0.5 Baso # 0.02 K/uL Low 0.1-0.2 Urine Screen 09/07/2013 [facility] Urine Color YELLOW Yellow Urine Clarity CLEAR Clear Urine Glucose - Dipstick NEGATIVE mg/dL Negative Urine Bilirubin - Dipstick NEGATIVE Negative Urine Ketone 15 mg/dL High Negative Urine Specific [place] 1.020 1.010-1.030 Urine Blood TRACE Negative Urine PH 6.0 Low 6.5-7.5 Urine Protein - Dipstick NEGATIVE mg/dL Negative Urine Urobilinogen - Dipstick 0.2 E.U./dL 0.2-1.0 Urine Nitrite - Dipstick NEGATIVE Negative Urine Leuk Esterase NEGATIVE Negative CBS W/Automated Diff 09/07/2013 [facility] White Blood Count 15.9 K/uL High 3.4-10.5 Red Blood Count 4.31 M/uL 4.20-5.80 Hemoglobin 14.4 gm/dL 12.8-17.0 Hematocrit 41.8 % 38.0-48.0 Mean Cell Volume 97.0 fl High 80.0-96.0 Mean Corpuscular HGB 33.4 pg High 27.0-33.0 Mean Corpuscular HGB Conc 34.4 g/dL 31.7-36.0 Platelet Count 270 K/uL 150-400 Red Cell Distri Width SD 47.8 fl 36-51 Red Cell Distri Width %CV 13.7 % 11.6-15.8 Mean Platelet Volume 9.6 fL 6.6-10.6 Neut% 81.0 % High 33.0-73.0 Lymph % 10.0 % Low 17.0-56.0 [place] % 8.5 % 0.0-10.0 Eo% 0.2 % 0.0-5.0 Bas% 0.3 % 0.1-1.0 Neut# 12.86 K/uL High 1.8-7.0 Lymph # 1.58 K/uL 1.2-4.0 [place] # 1.35 K/uL High 0.0-0.6 Eos # 0.03 K/uL 0.0-0.5 Baso # 0.04 K/uL Low 0.1-0.2 Comprehensive Metabolic Panel 09/07/2013 [facility] Glucose 95 mg/dL 76- 115 BUN 17 mg/dL 5-23 Creatinine 1.0 mg/dL 0.5-1.4 Glom Filtration Rate, Estimate >60 mL/min >60 If >60 mL/min >60 74 BUN/Creat 17.0 ratio Sodium 138 mmol/L 136-145 Potassium 3.9 mmol/L 3.5-5.1 Chloride 106 mmol/L 98-107 Carbon Dioxide 25 mEq/L 18-29 Anion Gap 11 mEq/L 8-16 Calcium 9.1 mg/dL 8.5-10.1 Total Protein 7.3 g/dL 6.3-8.0 Albumin 3.7 g/dL 3.5-5.0 Globulin 3.6 g/dL 1.9-4.3 Alb/Glob 1.0 ratio Bilirubin,Total 0.3 mg/dL 0.2-1.2 Sgot/Ast 13 U/L Low 16-40 SGPT/Alt 26 U/L Low 30-65 Alkaline Phosphatase 67 U/L 50-136 Laboratory test finding 09/07/2013 [facility] Lipase 79 U/L 28-380 CBC/Manual Differential 07/09/2013 [facility] White Blood Count 5.9 K/uL 3.4-10.5 Red Blood Count 4.63 M/uL 4.20-5.80 Hemoglobin 15.6 gm/dL 12.8-17.0 Hematocrit 46.2 % 38.0-48.0 Mean Cell Volume 99.8 fl High 80.0-96.0 Mean Corpuscular HGB 33.7 pg High 27.0-33.0 Mean Corpuscular HGB Conc 33.8 g/dL 31.7-36.0 Platelet Count 287 K/uL 150-400 Red Cell Distri Width %CV 13.9 % 11.6-15.8 Mean Platelet Volume 10.8 fL High 6.6-10.6 Total Cells Counted 100 #CELLS Neutrophils% 64 % 33-73 Lymph% 23 % 17-56 Platelet Estimate NORMAL Band% 1 % 0-8 Atypical Lymph% 3 % 0-7 Monocyte% 8 % 0-10 Eosinophil% 1 % 0-5 RBC Morphology NORMAL Glycohemoglobin A1c 07/09/2013 [facility] Glycohemoglobin (A1c) 5.7 % 4.8- 6.0 75 eAG 117 mg/dL PSA Free And 07/09/2013 [facility] Prostate-specific 1.1 ng/mL 0.0-4.0 76 Total antigen,Seru PSA,Free 0.22 N/Ang/mL 77 %Free PSA 20.0 % . 78 Laboratory test 07/09/2013 [facility] Thyroid Stim 0.72 uIU/mL 0.49-4.67 finding Hormone Liver Function Panel 07/09/2013 [facility] Total Protein 7.7 g/dL 6.3-8.0 Albumin 4.3 g/dL 3.5-5.0 Globulin 3.4 g/dL 1.9-4.3 Alb/Glob 1.3 ratio Bilirubin,Total 0.4 mg/dL 0.2-1.2 Bilirubin,Direct 0.1 mg/dL 0.1-0.4 Bilirubin,Indirect 0.3 mg/dL 0.0-0.9 Sgot/Ast 14 U/L Low 16-40 SGPT/Alt 24 U/L Low 30-65 Alkaline Phosphatase 81 U/L 50-136 Lipid Profile 07/09/2013 [facility] Cholesterol 216 mg/dL High 120-200 (Trig/Chol/HDL) Triglycerides 83 mg/dL 16-231 HDL Cholesterol 79 mg/dL 29-83 LDL-Cholesterol 120 mg/dL 62-185 Laboratory test 07/09/2013 [facility] C-Reactive 0.99 mg/L 0.00-3.00 79 finding Protein,Cardiac Sedimentation Rate 1 mm/hr 0-20 Basic Metabolic Panel 07/09/2013 [facility] Glucose 77 mg/dL 76-115 BUN 18 mg/dL 5-23 Creatinine 1.0 mg/dL 0.5-1.4 Glom Filtration Rate, Estimate >60 mL/min >60 If >60 mL/min >60 80 BUN/Creat 18.0 ratio Sodium 138 mmol/L 136-145 Potassium 4.2 mmol/L 3.5-5.1 Chloride 102 mmol/L 98-107 Carbon Dioxide 29 mEq/L 18-29 Anion Gap 11 mEq/L 8-16 Calcium 9.5 mg/dL 8.5-10.1 1 Performed using Siemens [place] immunoassay. Care must be taken when interpreting HbA1c results in patients with a hemoglobin variant or decreased erythrocyte lifespan. Values 5.7 - 6.4% suggest prediabetes. Values >=6.5% are diagnostic for diabetes. REFERENCE: DIABETES CARE 2018: 41(S13-S27). 2 PER NCEP ATP III GUIDELINES: RESULTS LOWER THAN 40 MG/DL ARE SUGGESTIVE OF INCREASED RISK FOR CORONARY ARTERY DISEASE. RESULTS > OR=TO 60 MG/DL ARE CONSIDERED A NEGATIVE RISK FACTOR. 3 INTERPRETATION OF CHOL-HDL RATIO CHD RISK FEMALE MALE VERY HIGH >8.3 >14.3 HIGH 5.6- 8.3 6.7- 14.3 AVERAGE 3.7- 5.6 4.0- 6.7 BELOW AVERAGE 2.5- 3.7 2.7- 4.0 PROTECTED <2.5 <2.7 4 PER NCEP ATP III GUIDELINES: OPTIMAL < 100 NEAR OPTIMAL 100 - 129 BORDERLINE HIGH 130 - 159 HIGH 160 - 189 VERY HIGH > 189 5 A REVIEW OF THE LITERATURE SUGGESTS THE FOLLOWING RANGES FOR THE CLASSIFICATION OF 25-OH VITAMIN D STATUS: VITAMIN D STATUS 25-OH VITAMIN D DEFICIENCY <20 NG/ML INSUFFICIENCY 20-30 NG/ML SUFFICIENCY 31 - 100 NG/ML TOXICITY > 100 NG/ML A PEDIATRIC REFERENCE RANGE HAS NOT BEEN ESTABLISHED USING THIS METHOD. 6 NORMAL KIDNEY FUNCTION OR MILD DISEASE - GFR >OR=60 CHRONIC KIDNEY DISEASE - GFR 15 - 59 RENAL FAILURE - GFR <15 Est. GFR calculation based on the MDRD study equation, which assumes a steady state for creatinine. Est. GFR should not be used for medication dosing. 7 E61.1/D64.9 8 Prescribed Medications: Alprazolam (Alprazolam), NicoDerm (Cotinine), ALBUTEROL, SPIRIVA 9 Prescribed Medications: Alprazolam (Alprazolam), NicoDerm (Cotinine), ALBUTEROL, SPIRIVA 10 Prescribed Medications: Alprazolam (Alprazolam), NicoDerm (Cotinine), ALBUTEROL, SPIRIVA 11 Prescribed Medications: Alprazolam (Alprazolam), NicoDerm (Cotinine), ALBUTEROL, SPIRIVA 12 27 Positive Consistent 13 187 Positive Consistent Alpha-hydroxyalprazolam is a metabolite of Alprazolam (Xanax). 14 Prescribed Medications: Alprazolam (Alprazolam), NicoDerm (Cotinine), ALBUTEROL, SPIRIVA 15 Prescribed Medications: Alprazolam (Alprazolam), NicoDerm (Cotinine), ALBUTEROL, SPIRIVA 16 Prescribed Medications: Alprazolam (Alprazolam), NicoDerm (Cotinine), ALBUTEROL, SPIRIVA 17 Prescribed Medications: Alprazolam (Alprazolam), NicoDerm (Cotinine), ALBUTEROL, SPIRIVA 18 Prescribed Medications: Alprazolam (Alprazolam), NicoDerm (Cotinine), ALBUTEROL, SPIRIVA 19 Positive >500 Inconsistent [id number]-Jvgvv-5-COOH is a metabolite of THC(Marijuana) Prescribed Medications: Alprazolam (Alprazolam), NicoDerm (Cotinine), ALBUTEROL, SPIRIVA 20 Prescribed Medications: Alprazolam (Alprazolam), NicoDerm (Cotinine), ALBUTEROL, SPIRIVA 21 Positive Consistent Prescribed Medications: Alprazolam (Alprazolam), NicoDerm (Cotinine), ALBUTEROL, SPIRIVA 22 Prescribed Medications: Alprazolam (Alprazolam), NicoDerm (Cotinine), ALBUTEROL, SPIRIVA 23 Prescribed Medications: Alprazolam (Alprazolam), NicoDerm (Cotinine), ALBUTEROL, SPIRIVA 24 Prescribed Medications: Alprazolam (Alprazolam), NicoDerm (Cotinine), ALBUTEROL, SPIRIVA 25 NORMAL KIDNEY FUNCTION OR MILD DISEASE - GFR >OR=60 CHRONIC KIDNEY DISEASE - GFR 15 - 59 RENAL FAILURE - GFR <15 Est. GFR calculation based on the MDRD study equation, which assumes a steady state for creatinine. Est. GFR should not be used for medication dosing. 26 A REVIEW OF THE LITERATURE SUGGESTS THE FOLLOWING RANGES FOR THE CLASSIFICATION OF 25-OH VITAMIN D STATUS: VITAMIN D STATUS 25-OH VITAMIN D DEFICIENCY <20 NG/ML INSUFFICIENCY 20-30 NG/ML SUFFICIENCY 31 - 100 NG/ML TOXICITY > 100 NG/ML A PEDIATRIC REFERENCE RANGE HAS NOT BEEN ESTABLISHED USING THIS METHOD. 27 PER NCEP ATP III GUIDELINES: RESULTS LOWER THAN 40 MG/DL ARE SUGGESTIVE OF INCREASED RISK FOR CORONARY ARTERY DISEASE. RESULTS > OR=TO 60 MG/DL ARE CONSIDERED A NEGATIVE RISK FACTOR. 28 INTERPRETATION OF CHOL-HDL RATIO CHD RISK FEMALE MALE VERY HIGH >8.3 >14.3 HIGH 5.6- 8.3 6.7- 14.3 AVERAGE 3.7- 5.6 4.0- 6.7 BELOW AVERAGE 2.5- 3.7 2.7- 4.0 PROTECTED <2.5 <2.7 29 PER NCEP ATP III GUIDELINES: OPTIMAL < 100 NEAR OPTIMAL 100 - 129 BORDERLINE HIGH 130 - 159 HIGH 160 - 189 VERY HIGH > 189 30 COUNT NOT AVAILABLE DUE TO CLUMPING OF PLATELETS/APPEAR ADEQUATE IN NUMBER 31 Prescribed Medications: Alprazolam (Alprazolam), ALBUTEROL, SPIRIVA 32 Prescribed Medications: Alprazolam (Alprazolam), ALBUTEROL, SPIRIVA 33 Prescribed Medications: Alprazolam (Alprazolam), ALBUTEROL, SPIRIVA 34 Prescribed Medications: Alprazolam (Alprazolam), ALBUTEROL, SPIRIVA 35 Negative Inconsistent 36 Negative Inconsistent 37 Prescribed Medications: Alprazolam (Alprazolam), ALBUTEROL, SPIRIVA 38 Prescribed Medications: Alprazolam (Alprazolam), ALBUTEROL, SPIRIVA 39 Prescribed Medications: Alprazolam (Alprazolam), ALBUTEROL, SPIRIVA 40 Prescribed Medications: Alprazolam (Alprazolam), ALBUTEROL, SPIRIVA 41 Prescribed Medications: Alprazolam (Alprazolam), ALBUTEROL, SPIRIVA 42 Prescribed Medications: Alprazolam (Alprazolam), ALBUTEROL, SPIRIVA 43 Prescribed Medications: Alprazolam (Alprazolam), ALBUTEROL, SPIRIVA 44 Positive >500 Inconsistent [id number]-[id number] is a metabolite of THC(Marijuana) Prescribed Medications: Alprazolam (Alprazolam), ALBUTEROL, SPIRIVA 45 Prescribed Medications: Alprazolam (Alprazolam), ALBUTEROL, SPIRIVA 46 Prescribed Medications: Alprazolam (Alprazolam), ALBUTEROL, SPIRIVA 47 Desirable <150 Borderline high 150-199 High 200-499 Very High >500 48 Desirable <200 Borderline high 200-239 High >239 49 Low <40 Desirable: 40-60 High: >60 50 Desirable: <100 mg/dL Near Optimal: 100-129 mg/dL Borderline High: 130-159 mg/dL High: 160-189 mg/dL Very High: >189 mg/dL 51 Therapeutic target for the treatment of diabetes Mellitus patients is <7% HBA1C, and in selective patients <6.0%.Please refer to [place] [employer] Diabetic care guidelines for further information. 52 Because ethnic data is not always readily available, this report includes an eGFR for both -Americans and non- Americans. The National Kidney Disease Education Program (NKDEP) does not endorse the use of the MDRD equation for patients that are not between the ages of 18 and 70, are , have extremes of body size, muscle mass, or nutritional status, or are non- or non-. According to the National Kidney Foundation, irrespective of diagnosis, the stage of the disease is based on the level of kidney function: Stage Description GFR(mL/min/1.73 m(2)) 1 Kidney damage with normal or decreased GFR 90 2 Kidney damage with mild decrease in GFR 60-89 3 Moderate decrease in GFR 30-59 4 Severe decrease in GFR 15-29 5 Kidney failure <15 (or dialysis) 53 [id number] 54 Because ethnic data is not always readily available, this report includes an eGFR for both -Americans and non- Americans. The National Kidney Disease Education Program (NKDEP) does not endorse the use of the MDRD equation for patients that are not between the ages of 18 and 70, are , have extremes of body size, muscle mass, or nutritional status, or are non- or non-. According to the National Kidney Foundation, irrespective of diagnosis, the stage of the disease is based on the level of kidney function: Stage Description GFR(mL/min/1.73 m(2)) 1 Kidney damage with normal or decreased GFR 90 2 Kidney damage with mild decrease in GFR 60-89 3 Moderate decrease in GFR 30-59 4 Severe decrease in GFR 15-29 5 Kidney failure <15 (or dialysis) 55 Desirable <150 Borderline high 150-199 High 200-499 Very High >500 56 Desirable <200 Borderline high 200-239 High >239 57 Low <40 Desirable: 40-60 High: >60 58 Desirable: <100 mg/dL Near Optimal: 100-129 mg/dL Borderline High: 130-159 mg/dL High: 160-189 mg/dL Very High: >189 mg/dL 59 [id number] 60 Desirable <150 Borderline high 150-199 High 200-499 Very High >500 61 Desirable <200 Borderline high 200-239 High >239 62 Low <40 Desirable: 40-60 High: >60 63 Desirable: <100 mg/dL Near Optimal: 100-129 mg/dL Borderline High: 130-159 mg/dL High: 160-189 mg/dL Very High: >189 mg/dL 64 Because ethnic data is not always readily available, this report includes an eGFR for both -Americans and non- Americans. The National Kidney Disease Education Program (NKDEP) does not endorse the use of the MDRD equation for patients that are not between the ages of 18 and 70, are , have extremes of body size, muscle mass, or nutritional status, or are non- or non-. According to the National Kidney Foundation, irrespective of diagnosis, the stage of the disease is based on the level of kidney function: Stage Description GFR(mL/min/1.73 m(2)) 1 Kidney damage with normal or decreased GFR 90 2 Kidney damage with mild decrease in GFR 60-89 3 Moderate decrease in GFR 30-59 4 Severe decrease in GFR 15-29 5 Kidney failure <15 (or dialysis) 65 Note: Persistent reduction for 3 months or more in an eGFR <60 mL/min/1.73 m2 defines CKD. Patients with eGFR values >/=60 mL/min/1.73 m2 may also have CKD if evidence of persistent proteinuria is present. The original MDRD equation for estimated GFR is not valid for patients less than 18 years of age. Additional information may be found at www.kdoqi.org. 66 Elevated levels of HbA1c suggest the need for more aggressive treatment of glycemia. The [place] [employer] recommends that a primary goal of therapy should be a HbA1c of <7% and that physicians should re-evaluate the treatment regimen in patients with HbA1c values consistently >8%. 67 NOTE CHANGE IN B12 REFERENCE RANGE 68 Reference Guidelines*: Desirable: ........... < 200 mg/dL Borderline High: ..... 200-239 mg/dL High: ................ >=240 mg/dL * The National Cholesterol Education Program (NCEP) 69 Reference Guidelines*: Normal: ............. < 150 mg/dL Borderline High: .... 150-199 mg/dL High: ............... 200-499 mg/dL Very High: .......... > 500 mg/dL * Source: National Cholesterol Education Program (NCEP) 70 Reference Guidelines*: Low HDL: ..... < 40 mg/dL Normal: ..... 40-60 mg/dL Desirable: ... > 60 mg/dL *The National Cholesterol Education Program(NCEP) 71 Reference Guidelines*: Optimal:........... <100 mg/dL Near Optimal....... 100-129 mg/dL Borderline High.... 130-159 mg/dL High............... 160-189 mg/dL Very High.......... >=190 mg/dL * Source: National Cholesterol Education Program (NCEP) 72 THIS ASSAY IS NOT INTENDED A CANCER SCREENING TEST The concentration of PSA in a given specimen, determined with assays from different manufacturers, can vary due to differences in assay methods and reagent specificity. Values obtained from different assay methods cannot be used interchangeably. 73 Note: Persistent reduction for 3 months or more in an eGFR <60 mL/min/1.73 m2 defines CKD. Patients with eGFR values >/=60 mL/min/1.73 m2 may also have CKD if evidence of persistent proteinuria is present. The original MDRD equation for estimated GFR is not valid for patients less than 18 years of age. Additional information may be found at www.kdoqi.org. 74 Note: Persistent reduction for 3 months or more in an eGFR <60 mL/min/1.73 m2 defines CKD. Patients with eGFR values >/=60 mL/min/1.73 m2 may also have CKD if evidence of persistent proteinuria is present. The original MDRD equation for estimated GFR is not valid for patients less than 18 years of age. Additional information may be found at www.kdoqi.org. 75 A1c value between 5.7% and 6.4% is considered at increased risk for diabetes. A1c value greater than 6.5 % is considered essentially diagnostic for Type II diabetes. Current guidelines recommend a treatment goal of <7% for diabetic patients. This method will measure glycosylated hemoglobin variants, HbS, HbG, HbH, HbWayne, HbC, HbE, etc. Other hemoglobin- opathies may give incorrect results with this test. 76 Jordyn ECLIA methodology. According to the [place] [employer], Serum PSA should decrease and remain at undetectable levels after radical prostatectomy. The AUA defines biochemical recurrence as an initial PSA value 0.2 ng/mL or greater followed by a subsequent confirmatory PSA value 0.2 ng/mL or greater. Values obtained with different assay methods or kits cannot be used interchangeably. Results cannot be interpreted as absolute evidence of the presence or absence of malignant disease. 77 Jordyn ECLIA methodology. 78 The table below lists the probability of prostate cancer for men with non-suspicious MEETA results and total PSA between 4 and 10 ng/mL, by patient age (Leidy et al, ANN 1998, 279:1542). % Free PSA 50-64 yr 65-75 yr 0.00-10.00% 56% 55% 10.01-15.00% 24% 35% 15.01-20.00% 17% 23% 20.01-25.00% 10% 20% >25.00% 5% 9% Please note: Leidy et al did not make specific recommendations regarding the use of percent free PSA for any other population of men. Performed at: RN - [facility] [address], [place], [place] [id number] Exercise Specialist: Lizzie Allen MD, Phone: [phone] Relative Risk for Future Cardiovascular Event Low <1.00 Average 1.00 - 3.00 High >3.00 80 Note: Persistent reduction for 3 months or more in an eGFR <60 mL/min/1.73 m2 defines CKD. Patients with eGFR values >/=60 mL/min/1.73 m2 may also have CKD if evidence of persistent proteinuria is present. The original MDRD equation for estimated GFR is not valid for patients less than 18 years of age. Additional information may be found at www.[email or web address]. Procedures Date Code Description Status 01/23/2018 26575 EKG Completed 03/30/2016 63756 Visual Screening Test Completed 03/30/2016 18406 EKG Completed 03/30/2016 83048 Audiometry, [place], Screening Completed 02/02/2015 07488 Spirometry Completed 07/23/2014 02592 Visual Screening Test Completed 07/23/2014 14473 EKG Completed 07/23/2014 39286 Audiometry, [place], Screening Completed 06/11/2014 33282 Spirometry Completed 03/04/2014 [id number] Colonoscopy Completed 01/26/2014 07168 Spirometry Completed 09/23/2013 41913 Spirometry Completed 07/09/2013 30086 Visual Screening Test Completed 07/09/2013 72574 EKG Completed 07/09/2013 65048 Diagnostic Bekesy Audiometry Completed Encounters Type Date Location Provider Dx Diagnosis Office Visit 07/10/2018 [facility] Nilson Valle, E78.2 Mixed hyperlipidemia 8:30a N.P. 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, acquired Z00.01 Encounter for general adult medical exam w abnormal findings Z68.1 Body mass index (BMI) 19.9 or less, adult Office Visit 11/26/2017 8:00a [facility] John Briscoe E78.2 Mixed hyperlipidemia Ford Salazar 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, acquired Office Visit 09/26/2017 8:00a [facility] John Briscoe E78.2 Mixed hyperlipidemia Ford Salazar 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, acquired Office Visit 08/01/2017 8:45a [facility] John Briscoe E78.2 Mixed hyperlipidemia Ford Salazar 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, acquired Office Visit 04/02/2017 8:30a [facility] Anival Justice44.9 Chronic obstructive RECRUITING OPERATIONS CONSULTANT pulmonary disease, unspecified F17.210 Nicotine dependence, cigarettes, uncomplicated G47.00 Insomnia, unspecified Office Visit 01/31/2017 8:30a [facility] Anival Justice44.9 Chronic obstructive RECRUITING OPERATIONS CONSULTANT pulmonary disease, unspecified F17.210 Nicotine dependence, cigarettes, uncomplicated G47.00 Insomnia, unspecified Office Visit 12/13/2016 8:30a [facility] Anival Justice J44.9 Chronic obstructive RECRUITING OPERATIONS CONSULTANT pulmonary disease, unspecified F17.210 Nicotine dependence, cigarettes, uncomplicated G47.00 Insomnia, unspecified Office Visit 11/29/2016 11:15a [facility] Anival Justice44.9 Chronic obstructive RECRUITING OPERATIONS CONSULTANT pulmonary disease, unspecified F17.210 Nicotine dependence, cigarettes, uncomplicated G47.00 Insomnia, unspecified 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, acquired M15.9 Polyosteoarthritis, unspecified R06.02 Shortness of breath K57.32 Dvtrcli of lg int w/o perforation or abscess w/o bleeding H52.13 Myopia, bilateral R10.13 Epigastric pain L20.9 Atopic dermatitis, unspecified J30.9 Allergic rhinitis, unspecified F41.9 Anxiety disorder, unspecified F33.9 Major depressive disorder, recurrent, unspecified F90.0 Attn-defct hyperactivity disorder, predom inattentive type E78.2 Mixed hyperlipidemia A09 Infectious gastroenteritis and colitis, unspecified R19.7 Diarrhea, unspecified R11.0 Nausea R10.84 Generalized abdominal pain Office Visit 04/14/2016 8:45a [facility] John Briscoe J44.9 Chronic obstructive MKapil Hathaway. 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, acquired M15.9 Polyosteoarthritis, unspecified R06.02 Shortness of breath K57.32 Dvtrcli of lg int w/o perforation or abscess w/o bleeding H52.13 Myopia, bilateral R10.13 Epigastric pain L20.9 Atopic dermatitis, unspecified J30.9 Allergic rhinitis, unspecified Z68.1 Body mass index (BMI) 19 or less, adult Z00.01 Encounter for general adult medical exam w abnormal findings Z23 Encounter for immunization Z28.21 Immunization not carried out because of patient refusal F41.9 Anxiety disorder, unspecified F33.9 Major depressive disorder, recurrent, unspecified F90.0 Attn-defct hyperactivity disorder, predom inattentive type E78.2 Mixed hyperlipidemia Office Visit 03/15/2016 8:30a [facility] Anival Justice Z28.21 Immunization not RECRUITING OPERATIONS CONSULTANT carried out because of patient refusal J44.9 Chronic obstructive 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 Obstruction Chronic Not Class Elsewhere 305.1 Tobacco Use Disorder 530.6 Esophageal Diverticulum Acquired 715.90 Osteoarthrosis Unspec Genlzd Or Localized Site Unspec 786.05 Shortness Of Breath 367.1 Myopia 562.11 Diverticulitis Colon W/O Hemorrhage 780.79 Malaise And Fatigue Other V17.3 History Family Ischemic Heart Disease Office Visit 07/23/2014 2:30p [facility] John Briscoe V70.0 Examination General Kapil Salazar. Medical Routine AT [facility] 496 COPD Airway Obstruction Chronic Not Class Elsewhere 305.1 Tobacco Use Disorder 530.6 Esophageal Diverticulum Acquired 715.90 Osteoarthrosis Unspec Genlzd Or Localized Site Unspec 786.05 Shortness Of Breath 367.1 Myopia 562.11 Diverticulitis Colon W/O Hemorrhage 780.79 Malaise And Fatigue Other V17.3 History Family Ischemic Heart Disease Office Visit 06/11/2014 10:15a [facility] Kal Briscoejason Vidales., 496 COPD Airway M.D. Obstruction Chronic Not Class Elsewhere 305.1 Tobacco Use Disorder 530.6 Esophageal Diverticulum Acquired 715.90 Osteoarthrosis Unspec Genlzd Or Localized Site Unspec 786.05 Shortness Of Breath 367.1 Myopia 562.11 Diverticulitis Colon W/O Hemorrhage 780.79 Malaise And Fatigue Other Office Visit 01/26/2014 11:30a [facility] Luis FelipeKaljason V[place]., 496 COPD Airway M.D. Obstruction Chronic Not Class Elsewhere 305.1 Tobacco Use Disorder 530.6 Esophageal Diverticulum Acquired 715.90 Osteoarthrosis Unspec Genlzd Or Localized Site Unspec 786.05 Shortness Of Breath Office Visit 09/23/2013 9:30a [facility] Luis FelipeAmericaarnold V[place]., 496 COPD Airway M.D. Obstruction Chronic Not Class Elsewhere 305.1 Tobacco Use Disorder 789.03 Pain Abdominal Right Lower Quadrant 530.6 Esophageal Diverticulum Acquired 715.90 Osteoarthrosis Unspec Genlzd Or Localized Site Unspec 367.1 Myopia 786.05 Shortness Of Breath 562.11 Diverticulitis Colon W/O Hemorrhage Office Visit 07/24/2013 9:30a [facility] Kelly Becerra 496 COPD Airway RECRUITING OPERATIONS CONSULTANT Obstruction Chronic Not Class Elsewhere 530.6 Esophageal Diverticulum Acquired 780.79 Malaise And Fatigue Other 562.01 Diverticulitis Small Intestine W/O Hemorrhage 305.1 Tobacco Use Disorder V17.3 History Family Ischemic Heart Disease V64.3 Patient Declined Colonoscopy 786.05 Shortness Of Breath Office Visit 07/16/2013 10:00a [facility] Kelly Becerra 49Radha COPD Airway RECRUITING OPERATIONS CONSULTANT Obstruction Chronic Not Class Elsewhere 530.6 Esophageal Diverticulum Acquired 780.79 Malaise And Fatigue Other 562.01 Diverticulitis Small Intestine W/O Hemorrhage 305.1 Tobacco Use Disorder V17.3 History Family Ischemic Heart Disease V64.3 Patient Declined Colonoscopy 794.31 Electrocardiogram (ECG) (EKG) Abnormal 786.05 Shortness Of Breath Office Visit 07/09/2013 10:00a [facility] Hernan V70.0 Examination FAISAL Mendo[facility] Routine AT [facility] 496 COPD Airway Obstruction Chronic Not Class Elsewhere 530.6 Esophageal Diverticulum Acquired 780.79 Malaise And Fatigue Other 305.1 Tobacco Use Disorder 562.01 Diverticulitis Small Intestine W/O Hemorrhage V17.3 History Family Ischemic Heart Disease V64.3 Patient Declined Colonoscopy V76.44 Screening For Malig Jamie Prostate V76.41 Screening Malignant Neoplasm Rectum Plan of Treatment Future Appointment(s):09/04/2018 8:30 am - Nilson Valle N.P. at [facility]
[2018-07-20 08:21] VITALS: BP 123/74
--- NOTE | 2018-07-20 08:40 | UC ---
Respiratory Complaint HPI - HPI Summary HPI Summary: History of COPD and iron deficiency anemia; he is concerned that his iron stores are decreased although his hemoglobin was 14.2 3 weeks ago. Over the past 2 days, he has had more severe dyspnea and had to leave work last night. Uses tiotropium daily, last used albuterol 2 days ago because it did not help. - History of Current Complaint Chief Complaint: UCRespiratory Stated Complaint: COPD EXACERBATION Time Seen by Provider: 07/20/18 08:27 Hx Obtained From: Patient Onset/Duration: Gradual Onset, Lasting Days - 3 Timing: Constant Pain Intensity: 0 Character: Cough: Nonproductive Aggravating Factors: Exertion, Deep Breaths Alleviating Factors: Upright Position Associated Signs And Symptoms: Positive: Dyspnea - Risk Factors Pulmonary Embolism Risk Factors: Negative Cardiac Risk Factors: Negative Pseudomonas Risk Factors: Negative Tuberculosis Risk Factors: Negative - Allergies/Home Medications Allergies/Adverse Reactions: Allergies Allergy/AdvReac Type Severity Reaction Status Date / Time codeine AdvReac Nausea Verified 07/20/18 08:14 Home Medications: Home Medications Cholecalciferol TAB* [Vitamin D TAB*] 2,000 units PO DAILY 07/20/18 [History Confirmed 07/20/18] Tiotropium Brom/Olodaterol(NF) [Stiolto Respimat Inh [place] (60 puff)(NF)] 2 puff INH QAM 07/20/18 [History Confirmed 07/20/18] PMH/Surg Hx/FS Hx/Imm Hx - Surgical History Surgical History: Yes Surgery Procedure, Year, and Place: Zenker's Divertulum Repair, 2002. Colon Resction, 1993. Appendectomy, 2000. 2 spontaneous pneumothorax.. - Family History Known Family History: Positive: Cardiac Disease - father - Social History Alcohol Use: None Substance Use Type: Marijuana Substance Use Comment - Amount & Last Used: 11/17/17 0900 Smoking Status (MU): Heavy Every Day Tobacco Smoker Type: Cigarettes Amount Used/How Often: 1/2 PPD Length of Time of Smoking/Using Tobacco: Since Age 15 Have You Smoked in the Last Year: Yes Review of Systems All Other Systems Reviewed And Are Negative: No Constitutional: Positive: Fatigue Skin: Positive: Negative Eyes: Positive: Negative ENT: Positive: Negative Respiratory: Positive: Shortness Of Breath, Cough Cardiovascular: Positive: Negative Gastrointestinal: Positive: Other - history of diverticulosis and resection; low body weight despite high calorie intake. Genitourinary: Positive: Negative Motor: Positive: Negative Neurovascular: Positive: Negative Musculoskeletal: Positive: Negative Neurological: Positive: Negative Psychological: Positive: Negative Is Patient Immunocompromised?: No Physical Exam Triage Information Reviewed: Yes Appearance: Ill-Appearing, Thin - cachectic Vital Signs: Initial Vital Signs Temp 99.1 F 07/20/18 08:12 Pulse 88 07/20/18 08:12 Resp 22 07/20/18 08:12 BP 123/74 07/20/18 08:12 Pulse Ox 95 07/20/18 08:12 Eyes: Positive: Conjunctiva Clear ENT: Positive: Pharyngeal erythema Respiratory: Positive: Decreased breath sounds, Expiration - prolonged Cardiovascular: Positive: RRR, No Murmur Musculoskeletal Exam: Normal Musculoskeletal: Positive: Strength Intact Neurological: Positive: Alert, Muscle Tone Normal Psychological Exam: Normal Skin Exam: Normal UC Diagnostic Evaluation - Laboratory O2 Sat by Pulse Oximetry: 95 Diagnostic Studies Comment: Chest xray shows evidence of hyperinflation, dx COPD per Dr. Hinojosa. Re-Evaluation - Re-Evaluation First Eval Re-Evaluation Time: 09:45 Change: Improved Comment: improved post duoneb with better air entry Respiratory Course/Dx - Course Course Of Treatment: nebulizer prescribed and steroid course for COPD - Differential Dx/Diagnosis Differential Diagnosis/HQI/PQRI: Influenza, Lower Resp Infection, Pneumothorax Provider Diagnosis: COPD with exacerbation Discharge - Sign-Out/Discharge Documenting (check all that apply): Patient Departure All imaging exams completed and their final reports reviewed: Yes - Discharge Plan Condition: Stable Disposition: HOME Prescriptions: Albuterol 2.5MG/3ML (0.083%)* [Ventolin 2.5 MG/3 ML NEB.MARLI*] 2.5 mg INH Q6H PRN #60 neb.marli PRN Reason: Wheezing predniSONE [Deltasone 20 MG TAB] 2 tab PO DAILY #10 tablet Patient Education Materials: COPD (Chronic Obstructive Pulmonary Disease) (ED) Forms: *Work Release Referrals: John Briscoe MD [Primary Care Provider] - Additional Instructions: You have a prescription for a nebulizer unit; you can use albuterol up to 4 times daily to improve your air entry and decrease wheezing. You can get this at [facility] on [facility] or the medical supply center near the [facility]. The steroid course should decrease your COPD symptoms. If you have progressive breathlessness, please go to the emergency room for evaluation. - Billing Disposition and Condition Condition: STABLE Disposition: Home
[2018-07-20] MEDS ORDERED: Albuterol/Ipratropium NEB.SOL* Albuterol 2.5 MG/Ipratropium 0.5 MG 3 ML INH ONE (08:47)
[2018-07-20 09:13] LABS: Influenza A Molecular NEGATIVE (Negative); Influenza B Molecular NEGATIVE (Negative)
== END 2018-07-20 10:07 | disposition home or self-care (01) ==
LOC: UCCORT 08:06
DX: J44.1 Chronic obstructive pulmonary disease with (acute) exacerbation (principal); F17.210 Nicotine dependence, cigarettes, uncomplicated; Z88.5 Allergy status to narcotic agent
CPT/HCPCS: 71046; 99212; A9270-GY; G0463

== ENCOUNTER 2019-01-02 07:02 | Emergency (ER) | payer OTHER ==
[2019-01-02 07:26] VITALS: BP 115/63
--- NOTE | 2019-01-02 08:02 | UC ---
Knee Pain HPI - HPI Summary HPI Summary: 58 yo male with gradual onset of worsening left lat knee pain no trauma walks a lot at work pain worse with ambulating fells tearing no buckling no back pain - History of Current Complaint Chief Complaint: UCLowerExtremity Stated Complaint: LEFT LEG PAIN Time Seen by Provider: 01/02/19 07:33 Hx Obtained From: Patient Onset/Duration: Gradual Onset, Lasting Days Severity Initially: Mild Severity Currently: Mild Pain Intensity: 1 Pain Scale Used: 0-10 Numeric Character: Sharp - tearing Aggravating Factor(s): Weight Bearing, Stairs Alleviating Factor(s): Rest Associated Signs And Symptoms: Positive: Negative Able to Bear Weight: Yes Legs: 1 - tearing pain 2 - radiates here - Allergies/Home Medications Allergies/Adverse Reactions: Allergies Allergy/AdvReac Type Severity Reaction Status Date / Time codeine AdvReac Nausea Verified 01/02/19 07:27 Home Medications: Home Medications Citalopram TAB* [CeleXA TAB*] 10 mg PO DAILY 01/02/19 [History Confirmed ] PMH/Surg Hx/FS Hx/Imm Hx - Additional Past Medical History Additional PMH: macrocytic anemia/wt loss Previously Healthy: Yes GI/ History: Diverticulitis - Surgical History Surgical History: Yes Surgery Procedure, Year, and Place: Zenker's Divertulum Repair, 2002. Colon Resction, 1993. Appendectomy, 2000. 2 spontaneous pneumothorax.. - Family History Known Family History: Positive: Cardiac Disease - father - Social History Alcohol Use: None Substance Use Type: Marijuana Substance Use Comment - Amount & Last Used: 11/17/17 0900 Smoking Status (MU): Light Every Day Tobacco Smoker Type: Cigarettes Amount Used/How Often: 4-5 day Length of Time of Smoking/Using Tobacco: Since Age 15 Have You Smoked in the Last Year: Yes Review of Systems All Other Systems Reviewed And Are Negative: Yes Constitutional: Positive: Negative Skin: Positive: Negative Eyes: Positive: Negative ENT: Positive: Negative Respiratory: Positive: Negative Cardiovascular: Positive: Negative Gastrointestinal: Positive: Negative Genitourinary: Positive: Negative Motor: Positive: Negative Neurovascular: Positive: Negative Musculoskeletal: Positive: Arthralgia - left knee Neurological: Positive: Negative Psychological: Positive: Negative Physical Exam Triage Information Reviewed: Yes Appearance: Thin Vital Signs: Initial Vital Signs Temp 97.7 F 01/02/19 07:21 Pulse 71 01/02/19 07:21 Resp 16 01/02/19 07:21 BP 115/63 01/02/19 07:21 Pulse Ox 99 01/02/19 07:21 Vital Signs Reviewed: Yes Eyes: Positive: Conjunctiva Clear ENT: Positive: Hearing grossly normal. Negative: Nasal congestion, Nasal drainage, Trismus, Muffled voice, Hoarse voice Neck: Positive: Supple, Nontender, No Lymphadenopathy Respiratory: Positive: Lungs clear, Normal breath sounds, No respiratory distress Cardiovascular: Positive: RRR, No Murmur Musculoskeletal: Positive: Other: - see image, FROM left knee, no effusion, stable Neurological: Positive: Alert Psychological: Positive: Normal Response To Family Skin Exam: Normal Diagnostics - Radiology No standard instances Radiology Interpretation Completed By: Radiologist Summary of Radiographic Findings: IMPRESSION: There is an obliquely oriented hypodense line along the superior lateral. patella with questionable chronic radiographic features. There are no prior knee. radiographs for comparison to be certain about the chronicity of this finding. If there is. clinical suspicion for an acute nondisplaced patella fracture then superior. characterization can be made with cross-sectional imagin Knee Pain Course/Dx - Course Course Of Treatment: please note patient has NO PATELLAR TENDERNESS - Differential Dx/Diagnosis Provider Diagnosis: Iliotibial band syndrome, left leg Discharge - Sign-Out/Discharge Documenting (check all that apply): Patient Departure All imaging exams completed and their final reports reviewed: Yes - Discharge Plan Condition: Stable Disposition: HOME Patient Education Materials: Knee Pain (ED) Forms: *Work Release Referrals: John Briscoe MD [Primary Care Provider] - 1 Week Additional Instructions: I think you have Iliotibial band syndrome ice twice daily aleve one 2x daily...take with food PT consult - Billing Disposition and Condition Condition: STABLE Disposition: Home
== END 2019-01-02 08:33 | disposition home or self-care (01) ==
LOC: UCCORT 07:02
DX: M76.32 Iliotibial band syndrome, left leg (principal); F17.210 Nicotine dependence, cigarettes, uncomplicated
CPT/HCPCS: 99211; G0463